=== PATIENT | male | born 1980 | race Caucasian/White ===

== ENCOUNTER 2023-11-16 15:17 | Outpatient (OUT) | payer OTHER, SELFPAY ==
--- NOTE | 2023-11-16 15:23 | CT_ITS ---
The [address] [address] Patient Name: ROSENDO LEGGETT MRN: [id number] date: 1980 Sex: M Assigned Patient Location: CT Current Patient Location: CT Accession/Order Number: [id number] Exam Date: 11/16/2023 15:25 Report Date: 11/16/2023 15:46 At the request of: DAWIT GAMBINO Procedure: CT sinus wo con EXAMINATION: CT sinus wo con HISTORY: chronic maxillary sinusitis J32.0 COMPARISON: No relevant comparison available. TECHNIQUE: Axial and Coronal CT images were created without IV contrast. Dose reduction techniques were achieved by using automated exposure control and/or adjustment of mA and/or kV according to patient size and/or use of iterative reconstruction technique. FINDINGS: MAXILLARY SINUSES: r mild bilateral inferior mucoperiosteal thickening measuring up to 4 mm in the right, 3 mm in the left. 8 mm mucous retention cyst superior lateral left maxillary sinus ETHMOID SINUSES: No significant mucosal thickening or fluid. Fovea ethmoidali and lamina papyracea are symmetric and intact. SPHENOID SINUSES: No significant mucosal thickening or fluid. Sphenoethmoidal recesses are patent. No bony dehiscence. FRONTAL SINUSES: Normal aeration of the right. Aplastic left NASAL FOSSA: No deviation of the nasal septum. No kristy bullosa or paradoxical turbinates are identified. OTHER: Negative. Limited views of the skull base and orbits are unremarkable. CT/CT sinus wo con IMPRESSION: Minimal bilateral sinus mucoperiosteal thickening Otherwise clear paranasal sinuses Electronically authenticated by: ALEA NIEVES Date: 11/16/2023 15:46
== END 2023-11-16 15:18 | disposition home or self-care (01) ==
LOC: CT 15:17
PROVIDERS: PCP Family Medicine; Visit Provider Otolaryngology
DX: J32.0 Chronic maxillary sinusitis (principal)
CPT/HCPCS: 70486

== ENCOUNTER 2024-01-04 14:44 | Outpatient (OUT) | payer OTHER, SELFPAY ==
[2024-01-04 15:35] LABS: INR 1.03; Prothrombin Time 10.9 sec (9.0-11.6)
== END 2024-01-04 14:45 | disposition home or self-care (01) ==
LOC: LAB 14:45
PROVIDERS: Otolaryngology; PCP Family Medicine
DX: Z79.01 Long term (current) use of anticoagulants (principal)
CPT/HCPCS: 36415; 85610; 85730